=== PATIENT | male | born 1940 | race Caucasian/White ===

== ENCOUNTER 2017-08-09 10:21 | Inpatient (IN) | payer MEDICARE ==
[2017-08-08 15:22] LABS: BASOPHILS % (AUTO) 0.2 % (0-1); EOSINOPHILS % (AUTO) 0.8 % (0-6); LYMPHOCYTES # (AUTO) 1.7 X10'3 (1.1-4.8); LYMPHOCYTES % (AUTO) 43.8 % (21-51); MEAN CORPUSCULAR HEMOGLOBIN 32.6 PG (27.0-31.0); MEAN CORPUSCULAR HGB CONC 33.7 % (33.0-36.5); MEAN PLATELET VOLUME 6.6 FL (7.4-10.4); MONOCYTES # (AUTO) 0.6 X10'3 (0-0.9); MONOCYTES % (AUTO) 13.9 % (2-12); NEUTROPHILS # (AUTO) 1.7 X10'3 (1.8-7.7); NEUTROPHILS % (AUTO) 41.3 % (42-75); PRE OP PLATELET COUNT 221 X10'3 (140-440); RED BLOOD COUNT 2.58 X10'6 (4.70-6.10); RED CELL DISTRIBUTION WIDTH 16.3 % (11.5-14.5)
[2017-08-08 15:25] LABS: PRE OP HEMOGLOBIN 8.4 g/dL (14.0-17.9)
[2017-08-08 15:26] LABS: PRE OP INR 1.1 INR; PRE OP PROTIME 11.4 SECONDS (9.0-12.0)
[2017-08-08 15:37] LABS: ALBUMIN 2.2 G/DL (3.4-5.0); ALBUMIN/GLOBULIN RATIO 0.2 (1.1-1.5); ALKALINE PHOSPHATASE 53 IU/L (46-116); BLOOD UREA NITROGEN 20 MG/DL (7-18); BUN/CREATININE RATIO 14.4 (5.4-32.0); CALCIUM 9.2 MG/DL (8.5-10.1); CHLORIDE 103 MMOL/L (99-107); CREATININE 1.39 MG/DL (0.60-1.10); PRE OP ALT 35 U/L (30-65); PRE OP ANION GAP 7 (8-16); PRE OP AST 45 U/L (10-37); PRE OP BILIRUB, TOTAL 0.2 MG/DL (0.0-1.0); PRE OP GLUCOSE 93 MG/DL (70-104); PRE OP SODIUM 134 MMOL/L (135-145); TOTAL CARBON DIOXIDE 23.6 MMOL/L (24-32); eGFR 50 ML/MIN
[~2017-08-09] VITALS: Ht 175.3 cm; Wt 83.9 kg
[2017-08-09] VITALS (15 sets, daily range): BP systolic 11–139; BP diastolic 53–73
[~2017-08-09 10:21] MED LIST: ALPR-160 PO; OXYC-145 PO; VANCOMYCIN INJ 1000 MG in NORMAL SALINE 250ml IV.SOLN IV ONE; ceFAZolin 2gm in dextrose, iso 100 ML IV ONE; ceFAZolin 2gm in dextrose, iso 50 ML IV ONE; famotidine 20mg tablet PO ONE; ringers solution, lacted 1,000 ML IV SCH; tranexamic acid inj. 840 MG in normal saline 100ml IV soln 91.6 ML IV ONE
[2017-08-09] MEDS ORDERED: ketorolac trometh. 30mg/ml inj. ONE (12:51)
[2017-08-09] MEDS ORDERED: vancomycin 1,000mg inj ONE (12:51)
[2017-08-09] MEDS ORDERED: ROPIVAcaine 0.5% (5mg/ml) 30ml vial ONE ×2 (12:52→13:31)
[2017-08-09] MEDS ORDERED: NORMAL SALINE IV ONE ×2 (13:20→13:25)
[2017-08-09] MEDS ORDERED: TRANEXAMIC ACID IV ONE ×2 (13:20→13:25)
[2017-08-09] MEDS ORDERED: midazolam 2 mg/2 ml injection ONE (13:33)
[2017-08-09] MEDS ORDERED: fentaNYL/PF 50MCG/1 ML 2ML syringe ONE ×2 (13:33→14:58)
[2017-08-09] MEDS ORDERED: propofol inj 20 ML IV ONE (13:36)
[2017-08-09] MEDS ORDERED: LIDOcaine 2% (20mg/ml) 5ml vial ONE (13:36)
[2017-08-09] MEDS ORDERED: dexamethasone sod phosphate 4mg/ml inj. ONE (13:57)
[2017-08-09] MEDS ORDERED: sevoflurane 250ml liquid IH ONE (13:57)
[2017-08-09] MEDS ORDERED: ringers solution, lacted 1,000 ML IV SCH (15:05)
[2017-08-09] MEDS ORDERED: ondansetron/PF 4mg/2ml inj IV PRN ×2 (15:05→16:20)
[2017-08-09] MEDS ORDERED: enalaprilat dihydrate 2.5mg/2ml vial IV PRN (15:05)
[2017-08-09] MEDS ORDERED: fentaNYL/PF 50MCG/1 ML 2ML syringe IV PRN ×2 (15:05)
[2017-08-09] MEDS ORDERED: hydrALAZINE 20mg/ml inj. IV PRN (15:05)
[2017-08-09] MEDS ORDERED: ondansetron/PF 4mg/2ml inj ONE (15:39)
[2017-08-09] MEDS ORDERED: oxyCODONE IR 5mg (immed. release) tablet PO PRN (16:20)
[2017-08-09] MEDS ORDERED: HYDROmorphone 1 mg/ml syringe IV PRN ×2 (16:20)
[2017-08-09] MEDS ORDERED: oxyCODONE/APAP 5-325mg tablet PO PRN (16:20)
[2017-08-09] MEDS ORDERED: bisacodyl 10mg suppository rectal RC PRN (16:20)
[2017-08-09] MEDS ORDERED: diphenhydrAMINE 25mg capsule PO PRN ×2 (16:20)
[2017-08-09] MEDS ORDERED: acetaminophen 325mg tablet PO PRN (16:20)
[2017-08-09] MEDS ORDERED: magnesium hydroxide 30ml (MOM) UD suspension PO PRN (16:20)
[2017-08-09 16:46] LABS: ISTAT CREATININE 1.2 mg/dL (0.8-1.3); ISTAT HGB 7.8 g/dl (14.0-18.0); ISTAT IONIZED CALCIUM 1.19 mmol/L (1.03-1.32); ISTAT K 5.1 mmol/L (3.5-5.1)
[2017-08-09] MEDS ORDERED: tranexamic acid inj. 840 MG in normal saline 100ml IV soln 100 ML IV ONE (19:20)
[2017-08-09] MEDS ORDERED: vancomycin/NS 1 GM ADD-VANTAGE 250 ML IV SCH (20:00)
[2017-08-09] MEDS ORDERED: celeCOXIB 100mg capsule PO SCH (20:00)
[2017-08-09] MEDS: acetaminophen 325mg tablet PO SCH (20:13)
[2017-08-09] MEDS: ketorolac tromethamine 15mg/ml inj. IV SCH (20:13)
[2017-08-09] MEDS: gabapentin 300mg capsule PO SCH (20:13)
[2017-08-09] MEDS: potassium cl 20mEq in 1/2 NS 1,000 ML IV SCH (20:14)
[2017-08-09] MEDS ORDERED: sennosides 8.6mg tablet PO SCH (21:00)
[2017-08-09] MEDS ORDERED: ALPRAZolam 0.25mg tablet PO SCH (21:00)
[2017-08-10] VITALS (7 sets, daily range): BP systolic 87–118; BP diastolic 46–69
[2017-08-10] MEDS: potassium cl 20mEq in 1/2 NS 1,000 ML IV SCH ×2 (00:18→08:18)
[2017-08-10] MEDS: CEFAZOLIN SODIUM/NORMAL SALINE 100 ML IV SCH ×2 (00:24→08:04)
[2017-08-10] MEDS: ketorolac tromethamine 15mg/ml inj. IV SCH ×3 (02:18→13:47)
[2017-08-10] MEDS: acetaminophen 325mg tablet PO SCH ×3 (02:18→13:48)
[2017-08-10] MEDS: oxyCODONE IR 5mg (immed. release) tablet PO PRN ×2 (05:29→13:20)
[2017-08-10 07:51] LABS: BASOPHILS % (AUTO) 0 % (0-1); EOSINOPHILS # (AUTO) 0.1 X10'3 (0-0.9); EOSINOPHILS % (AUTO) 1.4 % (0-6); LYMPHOCYTES # (AUTO) 1.3 X10'3 (1.1-4.8); LYMPHOCYTES % (AUTO) 18.3 % (21-51); MEAN CORPUSCULAR HEMOGLOBIN 33.9 PG (27.0-31.0); MEAN CORPUSCULAR HGB CONC 34.1 % (33.0-36.5); MEAN CORPUSCULAR VOLUME 99.2 FL (78-98); MEAN PLATELET VOLUME 6.6 FL (7.4-10.4); MONOCYTES # (AUTO) 0.5 X10'3 (0-0.9); MONOCYTES % (AUTO) 7.7 % (2-12); NEUTROPHILS # (AUTO) 5.1 X10'3 (1.8-7.7); NEUTROPHILS % (AUTO) 72.6 % (42-75); PLATELET COUNT 169 X10'3 (140-440); RED BLOOD COUNT 1.93 X10'6 (4.70-6.10); RED CELL DISTRIBUTION WIDTH 17.4 % (11.5-14.5)
[2017-08-10 07:57] LABS: HEMATOCRIT 19.1 % (42.0-52.0); HEMOGLOBIN 6.5 g/dl (14.0-17.9)
[2017-08-10] MEDS: gabapentin 300mg capsule PO SCH ×2 (08:04→13:47)
[2017-08-10 08:07] LABS: ANION GAP 8 (8-16); CHLORIDE 103 MMOL/L (99-107); POTASSIUM 4.7 MMOL/L (3.5-5.1); SODIUM 132 MMOL/L (135-145); TOTAL CARBON DIOXIDE 20.6 MMOL/L (24-32)
[2017-08-11] MEDS ORDERED: acetaminophen 325mg tablet PO PRN (16:20)
== END 2017-08-10 14:20 | disposition home or self-care (01) | DRG 483 ==
LOC: PAS IN 10:21 → EDSTATUS 14:30 → ORTHO 4S 17:13
PROVIDERS: ADMIT Orthopaedic Surgery; ATTEND Orthopaedic Surgery
PROC: 0LS30ZZ Reposition Right Upper Arm Tendon, Open Approach (ICD-10-PCS; 2017-08-09)
PROC: 3E0T3BZ Introduction of Anesthetic Agent into Peripheral Nerves and Plexi, Percutaneous Approach (ICD-10-PCS; 2017-08-09)
PROC: 0RRJ00Z Replacement of Right Shoulder Joint with Reverse Ball and Socket Synthetic Substitute, Open Approach (ICD-10-PCS; principal; 2017-08-09 13:57)
PROC: 30233N1 Transfusion of Nonautologous Red Blood Cells into Peripheral Vein, Percutaneous Approach (ICD-10-PCS; 2017-08-10)
DX: M19.011 Primary osteoarthritis, right shoulder (principal); C90.00 Multiple myeloma not having achieved remission; D50.0 Iron deficiency anemia secondary to blood loss (chronic); N18.3 Chronic kidney disease, stage 3 (moderate); M75.121 Complete rotator cuff tear or rupture of right shoulder, not specified as traumatic; M65.811 Other synovitis and tenosynovitis, right shoulder; G89.29 Other chronic pain; M75.21 Bicipital tendinitis, right shoulder; M50.30 Other cervical disc degeneration, unspecified cervical region; M47.812 Spondylosis without myelopathy or radiculopathy, cervical region; Z96.651 Presence of right artificial knee joint; Z96.641 Presence of right artificial hip joint; Z79.899 Other long term (current) drug therapy
CPT/HCPCS: 36415; 71046; 80047; 80051; 80053; 85025; 85610; 85730; 86885; 86900; 86901; 86920; 87070; 97110; 97116; 97161; A4565; A6449; A7000; J0690; J1100; J1170; J1885; J2001; J2250; J2405; J2704; J2795; J3010; J3370; J7030; J7120; P9016